=== PATIENT | female | born 1995 | race Caucasian/White ===

== ENCOUNTER → 2017-09-11 | Outpatient (CLI) | payer OTHER ==
[~2017-09-11] VITALS: Ht 162.6 cm; Wt 53.5 kg
[~2017-09-11] MED LIST: GADOBUTROL 7.5 MMOL/7.5 ML (GADAVIST) VIAL IV ONE; IOHEXOL 240 MGI/ML 20 ML (OMNIPAQUE) VIAL IV ONE; IOHEXOL 300 MG/ML 30 ML (OMNIPAQUE 300) VIAL IV ONE; LIDOCAINE 1% INJ 20 ML 20 ML VIAL INJ ONE; LIDOCAINE 1% INJ 20 ML 20 ML VIAL ONE
[2017-09-11 13:15] VITALS: BP 112/58
[2017-09-11 13:38] VITALS: BP 116/71
[2017-09-11] MEDS: CATHETER FLUSH 10 ML SYR IVP PRN (13:44)
--- NOTE | 2017-09-11 15:51 | Diagnostic Imaging Report ---
PROCEDURE: MRI left joint lower extremity with contrast. TECHNIQUE: Multiplanar, multisequence contrast-enhanced MRI of the left lower extremity was accomplished. INDICATION: Left hip pain. COMPARISON: None available. FINDINGS: Left hip: The left hip joint is well distended with intra-articular contrast material. There is no proliferative synovitis or loose bodies present. No chondromalacia within the left hip. The left acetabular labrum has normal morphology and there is no tear or paralabral cyst. Normal femoral head neck offset. No acetabular retroversion. Ligamentum teres is intact. Pelvis: No fracture or stress fracture within the pelvis or proximal femurs. No osteonecrosis of the femoral head. The bilateral distal iliopsoas tendons are intact. The proximal hamstring complexes are normal. No abnormality of the adductor musculature. No abnormal narrowing of the ischiofemoral spaces. The bilateral gluteus medius and minimus tendons are intact. No peritrochanteric fluid collections to indicate bursitis. No free pelvic fluid. IMPRESSION: 1. No acetabular labral tear. 2. No muscle strain or tendon tear around the left hip to account for pain. 3. No stress fracture within the proximal femurs or pelvis. Dictated by: Dictated on workstation # [id number]
--- NOTE | 2017-09-11 17:07 | Diagnostic Imaging Report ---
INDICATION: Left hip pain. The patient was brought to the procedure room and placed on the table in the supine position. Skin over the left hip was prepped and draped in usual sterile fashion. A small amount of 1% lidocaine was utilized for local anesthesia. A 20-gauge needle was advanced into the left hip and placed with the tip at the femoral head and neck junction laterally. 15 mL solution of iodinated contrast, normal saline and gadolinium was injected under fluoroscopic observation. The needle was withdrawn, hemostasis was obtained. 28 seconds of fluoroscopy was utilized. IMPRESSION: Fluoroscopically assisted left hip injection of gadolinium contrast solution, as described. Dictated by: Dictated on workstation # [id number]
== END ==
LOC: RAD 12:37
PROVIDERS: ATTEND Orthopaedic Surgery
DX: S73.102A Unspecified sprain of left hip, initial encounter (principal)
CPT/HCPCS: 27093; 73525; 73722

== ENCOUNTER 2017-11-26 08:27 | Outpatient (RCR) | payer OTHER | END 2017-11-26 09:24 | disposition home or self-care (01) | PROVIDERS: ATTEND Orthopaedic Surgery | DX: M25.552 Pain in left hip (principal); M25.562 Pain in left knee; M25.652 Stiffness of left hip, not elsewhere classified; M25.662 Stiffness of left knee, not elsewhere classified ==

== ENCOUNTER 2018-07-13 15:54 | Emergency (ER) | payer OTHER ==
[~2018-07-13] VITALS: Ht 165.1 cm; Wt 58.1 kg
--- OUTSIDE RECORDS SUMMARY | 2018-07-13 16:10 | XMS REPORT ---
Author Author SAVI KANA Organization [facility] Address [address] [place] [address] Care Team Providers Care Rate And Cost Analyst Name Role Phone KANA HOU Unavailable PROBLEMS Type Condition ICD9-CM Code [id number] Code Onset Dates Condition Status SNOMED Code Problem Panic attacks F41.0 Active [id number] ALLERGIES No Known Allergies ENCOUNTERS Encounter Location Date Diagnosis [facility] [address] [facility] [id number] [address] Feb, Panic attacks F41.0 IMMUNIZATIONS No Known Immunizations SOCIAL HISTORY Never Assessed REASON FOR VISIT palpitations. pt states she felt the palpitations during an anxiety attack on February 12-[facility] PLAN OF CARE Activity Details Follow Up prn Reason: VITAL SIGNS Height 65.25 in 2018-02-22 Weight 129.9 lbs 2018-02-22 Temperature 98.2 degrees Fahrenheit 2018-02-22 Heart Rate 75 bpm 2018-02-22 Respiratory Rate 20 2018-02-22 Oximetry 100 % 2018-02-22 BMI 21.45 kg/m2 2018-02-22 Blood pressure systolic 124 mmHg 2018-02-22 Blood pressure diastolic 70 mmHg 2018-02-22 MEDICATIONS Medication Instructions Dosage Frequency Start Date End Date Duration Status HydrOXYzine HCl 25 MG Orally every 8 hrs 1 tablet as needed for anxiety 8h Feb, 30 day(s) Active RESULTS No Results PROCEDURES Procedure Date Ordered Result Body Site EKG, TRACING (IN-HOUSE) 2018-02-22 N/A ELECTROCARDIOGRAM, TRACING Feb 22, 2018 VENIPUNCT, ROUTINE* Feb 22, 2018 COMPLETE CBC W/AUTO DIFF WBC Feb 22, 2018 ASSAY THYROID STIM HORMONE Feb 22, 2018 COMPREHEN METABOLIC PANEL Feb 22, 2018 INSTRUCTIONS MEDICATIONS ADMINISTERED No Known Medications MEDICAL (GENERAL) HISTORY Type Description Date Medical History s-SVT Medical History Anxiety Surgical History No know Surgical history
--- NOTE | 2018-07-13 16:18 | ED Lower Extremity ---
General Chief Complaint: Lower Extremity Stated Complaint: L LEG PAIN Nursing Triage Note: pt arrived pov with animal trainer with complaints of left lower leg pain, swelling, and redness. Pt states yesterday it started hurting and the coach operator stated the left extremity was colder than the other. Nursing Sepsis Screen: No Definite Risk Source: patient Exam Limitations: no limitations History of Present Illness Date Seen by Provider: Jul 13, 2018 Time Seen by Provider: 16:16 Initial Comments To ER with pain in the left lower extremity since yesterday that occurred towards the end of her run. Pain is worse with weightbearing on the foot, she's never had this this bad before but she has had some discomfort before. The pain is to the anterior left ankle and behind the left knee. It is not worsened by dorsiflexion and plantar flexion inversion or eversion, only with full weightbearing a sharp pain with weightbearing. She cannot recall any particular injury. Her cross enterprise integrator thought her large family on the left might be colder than the right leg came to the emergency room. Onset: just prior to arrival Severity: moderate Pain/Injury Location: left leg Method of Injury: unknown Modifying Factors: Worse With Movement Allergies and Home Medications Allergies Coded Allergies: No Allergy Information Available (Unverified , 09/11/17) Patient Home Medication List Home Medication List Reviewed: Yes Review of Systems Constitutional: see HPI; No chills, No fever EENTM: see HPI Respiratory: no symptoms reported Genitourinary: no symptoms reported Musculoskeletal: see HPI; No back pain, No joint swelling Skin: no symptoms reported Psychiatric/Neurological: No Symptoms Reported Past Kwiuqdn-Nujhlb-Crxpsy Hx Patient Social History Recent Foreign Travel: No Contact w/Someone Who Travel: No Recent Infectious Disease Expo: No Physical Exam Vital Signs Vital Signs - First Documented 07/13/18 16:04 Temp 97.4 Pulse 74 Resp 18 B/P (MAP) 114/76 (89) Pulse Ox 99 O2 Delivery Room Air Capillary Refill : Less Than 3 Seconds Height, Weight, BMI Height: 5'5.00" Weight: 128lbs. 0.0oz. 58.474800ds; 20.3 BMI Method:Stated General Appearance: WD/WN, no apparent distress HEENT: PERRL/EOMI, normal ENT inspection Neck: non-tender, full range of motion Respiratory: no respiratory distress, no accessory muscle use Hips: bilateral hip non-tender, bilateral hip normal inspection, bilateral hip normal range of motion Legs: left leg other (left anterior lower leg is without any temperature difference compared to the right. The dorsalis pedis pulses +2 in strength bilaterally. There is no swelling. There is minimal faint erythema to the anterior aspect of the lower leg just above the ankle without fluctuant orEffusion or abscess or break in the skin.) Knees: bilateral knee non-tender, bilateral knee normal inspection, bilateral knee normal range of motion Ankles: bilateral ankle non-tender, bilateral ankle normal inspection, bilateral ankle normal range of motion Feet: bilateral foot non-tender, bilateral foot normal inspection, bilateral foot normal range of motion Neurologic/Psychiatric: alert, normal mood/affect, oriented x 3 Skin: normal color, warm/dry Compartments of the lower leg are soft, no increased pain with flexion or plantar flexion, distal pulses and sensation are normal, do not have concern for exertional compartment syndrome. Progress/Results/Core Measures Results/Orders Lab Results Laboratory Tests Test 07/13/18 16:34 Range/Units White Blood Count 5.0 4.3-11.0 10^3/uL Red Blood Count 4.51 4.35-5.85 10^6/uL Hemoglobin 13.6 11.5-16.0 G/DL Hematocrit 41 35-52 % Mean Corpuscular Volume 90 80-99 FL Mean Corpuscular Hemoglobin 30 25-34 PG Mean Corpuscular Hemoglobin Concent 34 32-36 G/DL Red Cell Distribution Width 13.0 10.0-14.5 % Platelet Count 263 130-400 10^3/uL Mean Platelet Volume 9.4 7.4-10.4 FL Neutrophils (%) (Auto) 49 42-75 % Lymphocytes (%) (Auto) 39 12-44 % Monocytes (%) (Auto) 9 0-12 % Eosinophils (%) (Auto) 2 0-10 % Basophils (%) (Auto) 1 0-10 % Neutrophils # (Auto) 2.5 1.8-7.8 X 10^3 Lymphocytes # (Auto) 2.0 1.0-4.0 X 10^3 Monocytes # (Auto) 0.4 0.0-1.0 X 10^3 Eosinophils # (Auto) 0.1 0.0-0.3 10^3/uL Basophils # (Auto) 0.0 0.0-0.1 10^3/uL D-Dimer <= 0.27 0.00-0.49 UG/ML Sodium Level 143 135-145 MMOL/L Potassium Level 3.8 3.6-5.0 MMOL/L Chloride Level 108 H 98-107 MMOL/L Carbon Dioxide Level 24 21-32 MMOL/L Anion Gap 11 5-14 MMOL/L Blood Urea Nitrogen 15 7-18 MG/DL Creatinine 0.82 0.60-1.30 MG/DL Estimat Glomerular Filtration Rate > 60 BUN/Creatinine Ratio 18 Glucose Level 100 70-105 MG/DL Calcium Level 9.6 8.5-10.1 MG/DL Corrected Calcium 9.3 8.5-10.1 MG/DL Total Bilirubin 0.3 0.1-1.0 MG/DL Aspartate Amino Transf (AST/SGOT) 25 5-34 U/L Alanine Aminotransferase (ALT/SGPT) 25 0-55 U/L Alkaline Phosphatase 57 40-136 U/L Total Protein 7.0 6.4-8.2 GM/DL Albumin 4.4 3.2-4.5 GM/DL Serum Test, Qualitative NEGATIVE NEGATIVE My Orders Orders - ILYA LEIJA APRN Cbc With Automated Diff (07/13/18 16:09) Comprehensive Metabolic Panel (07/13/18 16:09) Fibrin Degradation Products (07/13/18 16:09) Hcg,Qualitative Serum (07/13/18 16:09) Ankle, Left, 3 Views (07/13/18 16:13) Us Venous Lower Ext Lt (07/13/18 16:13) Vital Signs/I&O 07/13/18 16:04 Temp 97.4 Pulse 74 Resp 18 B/P (MAP) 114/76 (89) Pulse Ox 99 O2 Delivery Room Air Blood Pressure Mean: 89 Departure Communication (Admissions) Dorsiflexion-external rotation test is negative. Squeeze test negative. I'm unable to reproduce the pain with any movement of the ankle. She states it hurts worse when it's just hanging off the edge of the chair. I advised ibuprofen, acetaminophen, follow-up with Dr. Chi, she should rest for the next 2-3 days. Impression Primary Impression: Ankle pain Qualified Codes: M25.572 - Pain in left ankle and joints of left foot Disposition: 01 HOME, SELF-CARE Condition: Stable Departure-Patient Inst. Decision time for Depature: 16:59 Referrals: NO,LOCAL PHYSICIAN (PCP) Primary Care Physician SHANTI CHI MD Patient Instructions: NO INSTRUCTIONS GIVEN Add. Discharge Instructions: 1. If pain does not improve within the next 2-3 days follow-up with [facility] or Dr. Chi. Return to ER for any concerns. All discharge instructions reviewed with patient and/or family. Voiced understanding. Images Extremities-Lower 1 - Other-See Progress Note 1 - Copy Copies To 1: SHANTI CHI MD, PETER J APRN Jul 13, 2018 16:18
--- NOTE | 2018-07-13 16:35 | Diagnostic Imaging Report ---
PROCEDURE: US left lower extremity venous. TECHNIQUE: Multiple real-time grayscale images were obtained over the left lower extremity in various projections. Additional duplex Doppler and color Doppler images were also obtained. INDICATION: Leg pain. FINDINGS: Femoropopliteal deep venous system appears patent. Vascular compressibility and color flow are unremarkable. Venous waveforms are unremarkable. IMPRESSION: No evidence for left lower extremity deep vein thrombus. Dictated by: Dictated on workstation # [id number]
[2018-07-13 16:51] LABS: BASOPHILS % (AUTO) 1 % (0-10); EOSINOPHILS # (AUTO) 0.1 10^3/uL (0.0-0.3); EOSINOPHILS % (AUTO) 2 % (0-10); HEMATOCRIT 41 % (35-52); HEMOGLOBIN 13.6 G/DL (11.5-16.0); LYMPHOCYTES % (AUTO) 39 % (12-44); MEAN CORPUSCULAR HEMOGLOBIN 30 PG (25-34); MEAN CORPUSCULAR HGB CONC 34 G/DL (32-36); MEAN CORPUSCULAR VOLUME 90 FL (80-99); MEAN PLATELET VOLUME 9.4 FL (7.4-10.4); MONOCYTES # (AUTO) 0.4 X 10^3 (0.0-1.0); MONOCYTES % (AUTO) 9 % (0-12); NEUTROPHILS # (AUTO) 2.5 X 10^3 (1.8-7.8); NEUTROPHILS % (AUTO) 49 % (42-75); PLATELET COUNT 263 10^3/uL (130-400)
--- NOTE | 2018-07-13 16:52 | Diagnostic Imaging Report ---
INDICATION: Left ankle pain. AP, oblique, and lateral views of the left ankle are obtained. FINDINGS: No fracture or acute bony abnormality is seen. Joint spaces are unremarkable. IMPRESSION: Negative left ankle. Dictated by: Dictated on workstation # [id number]
[2018-07-13 17:02] LABS: ALANINE AMINOTRANSFERASE 25 U/L (0-55); ALBUMIN 4.4 GM/DL (3.2-4.5); ALKALINE PHOSPHATASE 57 U/L (40-136); BILIRUBIN,TOTAL 0.3 MG/DL (0.1-1.0); BUN/CREATININE RATIO 18; CALCIUM 9.6 MG/DL (8.5-10.1); CARBON DIOXIDE 24 MMOL/L (21-32); CHLORIDE 108 MMOL/L (98-107); CREATININE SERUM 0.82 MG/DL (0.60-1.30); GFR ESTIMATED > 60; GLUCOSE 100 MG/DL (70-105); POTASSIUM 3.8 MMOL/L (3.6-5.0); SODIUM 143 MMOL/L (135-145)
--- NOTE | 2018-07-13 17:12 | NUR ---
Brittny hamlin in [place] - 07/16/18 at 0931 by JOLANTA INFUSAPORT NEEDLE CHANGED TO POWER PORT NEEDLE USING FILTER PLANT SUPERVISOR
[2018-07-13 17:22] VITALS: BP 117/82
== END 2018-07-13 17:22 | disposition home or self-care (01) ==
LOC: EDUNIT# 15:54 → ER 15:55
DX: M25.572 Pain in left ankle and joints of left foot (principal); X58.XXXA Exposure to other specified factors, initial encounter
CPT/HCPCS: 36415; 73610; 80053; 84703; 85025; 85379

== ENCOUNTER 2019-08-17 19:49 | Emergency (ER) | payer OTHER ==
[~2019-08-17] VITALS: Ht 167.6 cm; Wt 61.6 kg
[2019-08-17] MEDS ORDERED: SERT100T PO (20:09)
[2019-08-17] MEDS ORDERED: BREX2TAB PO (20:12)
--- NOTE | 2019-08-17 20:30 | NUR ---
PATIENT VERBALLY AGREES THAT SHE WILL NOT HARM HERSELF.
[2019-08-17 20:44] LABS: BASOPHILS % (AUTO) 0 % (0-10); EOSINOPHILS # (AUTO) 0.1 10^3/uL (0.0-0.3); EOSINOPHILS % (AUTO) 1 % (0-10); HEMATOCRIT 42 % (35-52); HEMOGLOBIN 14.2 G/DL (11.5-16.0); LYMPHOCYTES # (AUTO) 2.3 X 10^3 (1.0-4.0); LYMPHOCYTES % (AUTO) 29 % (12-44); MEAN CORPUSCULAR HEMOGLOBIN 29 PG (25-34); MEAN CORPUSCULAR HGB CONC 34 G/DL (32-36); MEAN CORPUSCULAR VOLUME 85 FL (80-99); MEAN PLATELET VOLUME 8.9 FL (7.4-10.4); MONOCYTES # (AUTO) 0.7 X 10^3 (0.0-1.0); MONOCYTES % (AUTO) 9 % (0-12); NEUTROPHILS # (AUTO) 4.7 X 10^3 (1.8-7.8); NEUTROPHILS % (AUTO) 61 % (42-75); PLATELET COUNT 293 10^3/uL (130-400); RED CELL DISTRIBUTION WIDTH 13.1 % (10.0-14.5); WHITE BLOOD COUNT 7.8 10^3/uL (4.3-11.0)
[2019-08-17] MEDS ORDERED: TETANUS,DIPTH,PERTUSS P/F (BOOSTRIX) 0.5 ML VIAL IM ONE (20:45)
[2019-08-17 20:55] LABS: BILIRUBIN,URINE NEGATIVE (NEGATIVE); CLARITY,URINE CLEAR; COLOR,URINE YELLOW; GLUCOSE, URINE (UA) NEGATIVE (NEGATIVE); KETONES,URINE NEGATIVE (NEGATIVE); LEUKOCYTE ESTERASE ,URINE NEGATIVE (NEGATIVE); NITRITE,URINE NEGATIVE (NEGATIVE); PROTEIN,URINE NEGATIVE (NEGATIVE)
[2019-08-17 21:00] LABS: BACTERIA,URINE TRACE /HPF; SQUAMOUS EPITHELIAL CELL,UR RARE /HPF
[2019-08-17 21:08] LABS: AMPHETAMINE SCREEN, URINE NEGATIVE (NEGATIVE); BARBITURATE SCREEN URINE NEGATIVE (NEGATIVE); BENZODIAZEPINES SCREEN URINE NEGATIVE (NEGATIVE); CANNABINOID SCREEN, URINE NEGATIVE (NEGATIVE); COCAINE SCREEN URINE NEGATIVE (NEGATIVE); METHADONE STAT NEGATIVE (NEGATIVE); METHAMPHETAMINE SCREEN URINE S NEGATIVE (NEGATIVE); OPIATE SCREEN URINE NEGATIVE (NEGATIVE); OXYCODONE STAT NEGATIVE (NEGATIVE); PROPOXYPHENE STAT NEGATIVE (NEGATIVE); TRICYCLIC ANTIDEPRESSANTS SCRE NEGATIVE (NEGATIVE)
[2019-08-17 21:11] LABS: ALANINE AMINOTRANSFERASE 12 U/L (0-55); ALBUMIN 4.8 GM/DL (3.2-4.5); ALKALINE PHOSPHATASE 60 U/L (40-136); BILIRUBIN,TOTAL 0.2 MG/DL (0.1-1.0); BUN/CREATININE RATIO 10; CALCIUM 9.6 MG/DL (8.5-10.1); CARBON DIOXIDE 20 MMOL/L (21-32); CHLORIDE 109 MMOL/L (98-107); CREATININE SERUM 0.78 MG/DL (0.60-1.30); GFR ESTIMATED > 60; GLUCOSE 93 MG/DL (70-105); POTASSIUM 3.6 MMOL/L (3.6-5.0); SALICYLATE < 5.0 MG/DL (5.0-20.0); SODIUM 143 MMOL/L (135-145); TOTAL PROTEIN 7.8 GM/DL (6.4-8.2)
--- NOTE | 2019-08-17 21:15 | ED Psychosocial ---
General Chief Complaint: Psych/Social Disorder Stated Complaint: PSYCH EVAL Nursing Triage Note: PATIENT STATES THAT SHE HAS STRUGGLED WITH DEPRESSION FOR 4-5 YEARS AND IT HAS GOTTEN WORSE OVER THE "PAST COUPLE OF WEEKS". SHE STATES THAT SHE DID HAVE ONE LARGE BEER TODAY AND DID CUT HERSELF TODAY, WHICH SHE HAS ALSO STRUGGLED WITH IN THE PAST. Source: patient, other (family friend) Exam Limitations: no limitations (DARCY OLIVARES MD) History of Present Illness Date Seen by Provider: Aug 17, 2019 Time Seen by Provider: 19:53 Initial Comments This pleasant 23-year-old young lady presents to the emergency room with suicidal ideation. She has been struggling with depression for a while and symptoms have been escalating in recent days. She has been medicated with Zoloft and Rexulti. She receives her psychiatric care at [facility] in [place] and had an appointment today. She has been staying at a friend's house recently as part of a safety plan. She returned to her own apartment today and was alone there. While alone she cut on her right wrist with knives resulting good shallow lacerations. She also drank a large beer. She describes suicidal thoughts with plan of action including cutting, drinking alcohol, carbon monoxide poisoning in her car, and hanging. She denies any drug use. She did drink one large beer today. She was dropped off at the hospital by a friend who also works for [facility]. Patient is reluctant to involve her family in her situation. (DARCY OLIVARES MD) Allergies and Home Medications Allergies Coded Allergies: No Allergy Information Available (Unverified , 09/11/17) Home Medications Brexpiprazole 2 Mg Tablet, 2 MG PO DAILY, (Reported) Sertraline HCl 100 Mg Tablet, 200 MG PO DAILY, (Reported) Patient Home Medication List Home Medication List Reviewed: Yes (DARCY OLIVARES MD) Review of Systems Constitutional: no symptoms reported EENTM: no symptoms reported Respiratory: no symptoms reported Cardiovascular: no symptoms reported Gastrointestinal: other (decreased appetite) Genitourinary: no symptoms reported : No Musculoskeletal: no symptoms reported Skin: see HPI Psychiatric/Neurological: See HPI (DARCY OLIVARES MD) Past Dtdkbpm-Yjhzaz-Vuyeve Hx Past Med/Social Hx: Reviewed Nursing Past Med/Soc Hx (DARCY OLIVARES MD) Patient Social History Number of Drinks Today: 1 Recent Foreign Travel: No Contact w/Someone Who Travel: No Recent Infectious Disease Expo: No Recent Hopitalizations: No (DARCY OLIVARES MD) Seasonal Allergies Seasonal Allergies: No (DARCY OLIVARES MD) Past Medical History Surgeries: No Respiratory: No Cardiac: No Neurological: No : No Genitourinary: No Gastrointestinal: No Musculoskeletal: No Endocrine: No HEENT: No Cancer: No Psychosocial: Yes Anxiety, Depression Integumentary: No Blood Disorders: Yes (anemia) Adverse Reaction/Blood Tranf: No (DARCY OLIVARES MD) Physical Exam Vital Signs - First Documented 08/17/19 20:14 Temp 36.5 Pulse 85 Resp 18 B/P (MAP) 131/82 (98) (SHONDA CAMACHO DO) Capillary Refill : Less Than 3 Seconds (DARCY OLIVARES MD) Height, Weight, BMI Height: 5'5.00" Weight: 128lbs. 0.0oz. 58.734445py; 21.00 BMI Method:Stated General Appearance: WD/WN, mild distress HEENT: PERRL/EOMI, normal ENT inspection Neck: normal inspection Respiratory: lungs clear, normal breath sounds, no respiratory distress Cardiovascular: regular rate, rhythm, no edema, no murmur Extremities: no pedal edema, other (shallow abrasions on the right dorsal wrist) Neurologic/Psychiatric: felt hat pouncing operator hand II-XII nml as tested, no motor/sensory deficits, alert, normal mood/affect, oriented x 3, abnormal felt hat pouncing operator hand II-XII Appearance/Memory: appropriate appearance, appropriate insight, neat, no memory impairment Behavior/Eye Contact: cooperative, good eye contact, normal speech Thoughts/Hallucinations: no apparent hallucination, other (suicidal ideation) Skin: normal color, warm/dry, other (shallow abrasions to the right dorsal wrist) (DARCY OLIVARES MD) Progress/Results/Core Measures Results/Orders Lab Results Laboratory Tests Test 08/17/19 20:35 08/17/19 20:45 Range/Units White Blood Count 7.8 4.3-11.0 10^3/uL Red Blood Count 4.89 4.35-5.85 10^6/uL Hemoglobin 14.2 11.5-16.0 G/DL Hematocrit 42 35-52 % Mean Corpuscular Volume 85 80-99 FL Mean Corpuscular Hemoglobin 29 25-34 PG Mean Corpuscular Hemoglobin Concent 34 32-36 G/DL Red Cell Distribution Width 13.1 10.0-14.5 % Platelet Count 293 130-400 10^3/uL Mean Platelet Volume 8.9 7.4-10.4 FL Neutrophils (%) (Auto) 61 42-75 % Lymphocytes (%) (Auto) 29 12-44 % Monocytes (%) (Auto) 9 0-12 % Eosinophils (%) (Auto) 1 0-10 % Basophils (%) (Auto) 0 0-10 % Neutrophils # (Auto) 4.7 1.8-7.8 X 10^3 Lymphocytes # (Auto) 2.3 1.0-4.0 X 10^3 Monocytes # (Auto) 0.7 0.0-1.0 X 10^3 Eosinophils # (Auto) 0.1 0.0-0.3 10^3/uL Basophils # (Auto) 0.0 0.0-0.1 10^3/uL Sodium Level 143 135-145 MMOL/L Potassium Level 3.6 3.6-5.0 MMOL/L Chloride Level 109 H 98-107 MMOL/L Carbon Dioxide Level 20 L 21-32 MMOL/L Anion Gap 14 5-14 MMOL/L Blood Urea Nitrogen 8 7-18 MG/DL Creatinine 0.78 0.60-1.30 MG/DL Estimat Glomerular Filtration Rate > 60 BUN/Creatinine Ratio 10 Glucose Level 93 70-105 MG/DL Calcium Level 9.6 8.5-10.1 MG/DL Corrected Calcium 8.5-10.1 MG/DL Total Bilirubin 0.2 0.1-1.0 MG/DL Aspartate Amino Transf (AST/SGOT) 16 5-34 U/L Alanine Aminotransferase (ALT/SGPT) 12 0-55 U/L Alkaline Phosphatase 60 40-136 U/L Total Protein 7.8 6.4-8.2 GM/DL Albumin 4.8 H 3.2-4.5 GM/DL TSH Weld Testing 1.13 0.35-4.94 UIU/ML Serum Test, Qualitative NEGATIVE NEGATIVE Salicylates Level < 5.0 L 5.0-20.0 MG/DL Acetaminophen Level < 10 L 10-30 UG/ML Serum Alcohol 116 H <10 MG/DL Urine Color YELLOW Urine Clarity CLEAR Urine pH 6.0 5-9 Urine Specific [place] <=1.005 1.016-1.022 Urine Protein NEGATIVE NEGATIVE Urine Glucose (UA) NEGATIVE NEGATIVE Urine Ketones NEGATIVE NEGATIVE Urine Nitrite NEGATIVE NEGATIVE Urine Bilirubin NEGATIVE NEGATIVE Urine Urobilinogen 0.2 < = 1.0 MG/DL Urine Leukocyte Esterase NEGATIVE NEGATIVE Urine RBC (Auto) NEGATIVE NEGATIVE Urine RBC NONE /HPF Urine WBC NONE /HPF Urine Squamous Epithelial Cells RARE /HPF Urine Crystals NONE /LPF Urine Bacteria TRACE /HPF Urine Casts NONE /LPF Urine Mucus NEGATIVE /LPF Urine Culture Indicated NO Urine Opiates Screen NEGATIVE NEGATIVE Urine Oxycodone Screen NEGATIVE NEGATIVE Urine Methadone Screen NEGATIVE NEGATIVE Urine Propoxyphene Screen NEGATIVE NEGATIVE Urine Barbiturates Screen NEGATIVE NEGATIVE Ur Tricyclic Antidepressants Screen NEGATIVE NEGATIVE Urine Phencyclidine Screen NEGATIVE NEGATIVE Urine Amphetamines Screen NEGATIVE NEGATIVE Urine Methamphetamines Screen NEGATIVE NEGATIVE Urine Benzodiazepines Screen NEGATIVE NEGATIVE Urine Cocaine Screen NEGATIVE NEGATIVE Urine Cannabinoids Screen NEGATIVE NEGATIVE (CAMACHO,SHONDA L DO) Medications Given in ED Current Medications Medications Dose Ordered Sig/Tisha Route Start Time Stop Time Status Last Admin Dose Admin Diphtheria/ Tetanus/Acell Pertussis 0.5 ml ONCE ONCE IM 08/17/19 20:45 08/17/19 20:46 DC 08/17/19 20:53 0.5 ML (CAMACHO,SHONDA L DO) Vital Signs/I&O 08/17/19 20:14 Temp 36.5 Pulse 85 Resp 18 B/P (MAP) 131/82 (98) (CAMACHO,SHONDA L DO) Blood Pressure Mean: 98 Progress Progress Note #1: Time: 21:14 Progress Note Workup for medical clearance is in progress. [facility] [place] and [facility] in [place], [place] do not have any bed availability. I have left a message at [facility] to check bed availability. Progress Note #2: Time: 02:32 Progress Note We have been unsuccessful in finding an available bed for admission. I discussed the patient's situation with a friend and her physician. The consensus amongst those involved is that the patient has been trying outpatient approaches without success. It is difficult for those supporting her to watch her continuously 24 hours a day. There is concern that when there is lapse in supervision she may use alcohol and make poor decisions that harm herself. Admission seems like the best option at this time. Progress Note #3: Time: 06:21 Progress Note So far we have been unable to secure a psychiatric bed for this patient. We have tried to find beds in the southern portion of our region as she did not want to be closer to [place]. The following facilities do not have beds: [facility] [place], [facility] [place], [facility], [facility] in [place], [facility] in [place], [facility], [facility] and [facility]. [facility] did not return my call. [facility] has a bed and is reviewing her chart. Care of this patient is being transitioned to Dr. Camacho at shift change. He did not have any success in getting the patient to communicate with her mother or consenting to let me communicate with her mother. (DARCY OLIVARES MD) Progress Note : Progress Note [id number] [facility], Dr Parikh (SHONDA CAMACHO DO) Departure Impression Primary Impression: Suicidal ideation Additional Impressions: Laceration of right forearm Qualified Codes: S51.811A - Laceration without foreign body of right forearm, initial encounter Self-harm Disposition: 02 XFER SHT-TRM HOSP Condition: Stable Transfer Transfer Reason: Exceeds level of care (DARCY OLIVARES MD) Transfer Reason: Exceeds level of care Time Spoke to Accepting Phy: 07:00 Transfer Progress Notes Pt accepted Dr Parikh Transfer Facility: [facility] Method of Transfer: EMS (SHONDA CAMACHO DO) Departure-Patient Inst. Referrals: NO,LOCAL PHYSICIAN (PCP/Family) Primary Care Physician DARCY OLIVARES MD Aug 17, 2019 21:15 SHONDA CAMACHO DO Aug 18, 2019 06:57
[2019-08-17 21:16] LABS: ACETAMINOPHEN < 10 UG/ML (10-30)
[2019-08-17 21:31] LABS: TSH (THYROID ANALYZER) 1.13 UIU/ML (0.35-4.94)
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
--- NOTE | 2019-08-18 00:47 | NUR ---
Called [facility] and [facility] to inquire if they had any beds available. They confirmed that they did have a bed available and an intake counselor would be following up.
--- NOTE | 2019-08-18 02:43 | NUR ---
Followed up with Nicolette because the intake counselor had not called us back. I spoke to Samson, the intake counselor, and connected him with Dr. Messer. I faxed them the patient cover sheet, Dr. Messer's notes, and her labs.
--- NOTE | 2019-08-18 03:00 | NUR ---
PATIENT REMOVED BLOOD PRESSURE CUFF.
--- NOTE | 2019-08-18 06:42 | NUR ---
CALLED [facility] FOR UPDATE ON ACCEPTING THE PATIENT. WAS INFORMED THAT INTAKE WAS CURRENTLY REVIEWING THE PATIENT'S INFORMATION AND THAT THEY WOULD CALL BACK WITH AN UPDATE.
--- NOTE | 2019-08-18 07:00 | NUR ---
REPORT FROM ADRY BARBOUR CALLED FOR TRASPORT WILL BE HREE IN 15 MIN.
[2019-08-18 07:38] VITALS: BP 139/87
--- NOTE | 2019-08-18 07:38 | NUR ---
[facility] HERE FOR TRANSPORT DISCHARGE WITH [facility]
[2019-08-18] MEDS ORDERED: NS IV 1000 ML 1,000 ML ONE (07:55)
[2019-08-18] MEDS ORDERED: ONDANSETRON 4 MG/2 ML (SDV) Z0FRAN ONE (07:55)
[2019-08-18] MEDS ORDERED: LORazepam INJ 2 MG/ML (ATIVAN) VIAL ONE (07:56)
== END 2019-08-18 07:38 | disposition short-term general hospital (02) ==
LOC: EDUNIT# 19:49 → ER 19:51
DX: S51.811A Laceration without foreign body of right forearm, initial encounter (principal); S60.811A Abrasion of right wrist, initial encounter; F32.9 Major depressive disorder, single episode, unspecified; F41.9 Anxiety disorder, unspecified; X78.1XXA Intentional self-harm by knife, initial encounter
CPT/HCPCS: 36415; 80053; 80306; 80320; 80329; 81000; 84443; 84703; 85025; 90715; 99284

== ENCOUNTER 2020-08-12 21:49 | Emergency (ER) | payer OTHER ==
[~2020-08-12 21:49] MED LIST changes: +BREX2TAB PO; -GADOBUTROL 7.5 MMOL/7.5 ML (GADAVIST) VIAL IV ONE; -IOHEXOL 240 MGI/ML 20 ML (OMNIPAQUE) VIAL IV ONE; -IOHEXOL 300 MG/ML 30 ML (OMNIPAQUE 300) VIAL IV ONE; -LIDOCAINE 1% INJ 20 ML 20 ML VIAL INJ ONE; -LIDOCAINE 1% INJ 20 ML 20 ML VIAL ONE; +SERT100T PO
== END 2020-08-12 23:57 | disposition left against medical advice (07) ==
LOC: EDUNIT# 21:49 → ER 21:51
DX: F44.9 Dissociative and conversion disorder, unspecified (principal)

== ENCOUNTER 2020-09-23 04:41 | Emergency (ER) | payer BC, OTHER ==
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
== END 2020-09-23 05:19 | disposition home or self-care (01) ==
LOC: EDUNIT# 04:41 → EEVIPCON 04:44 → ER 04:44
DX: T74.21XA Adult sexual abuse, confirmed, initial encounter (principal); F41.9 Anxiety disorder, unspecified; F32.9 Major depressive disorder, single episode, unspecified; Z79.899 Other long term (current) drug therapy; Y07.9 Unspecified perpetrator of maltreatment and neglect

== ENCOUNTER 2020-12-14 01:01 | Emergency (ER) | payer BC ==
[~2020-12-14] VITALS: Ht 165.1 cm; Wt 68.0 kg
[2020-12-14] MEDS ORDERED: ADENOSINE 6 MG/2 ML (ADENOCARD) VIAL IV ONE ×4 (01:26→01:30)
--- NOTE | 2020-12-14 01:31 | ED Cardiac General ---
History of Present Illness General Chief Complaint: Cardiac/General Problems Stated Complaint: HEART PALPITATIONS Source: patient Exam Limitations: no limitations History of Present Illness Date Seen by Provider: Dec 14, 2020 Time Seen by Provider: 01:20 Initial Comments Patient is a 25-year-old female who presents to the emergency department today with a chief complaint of "palpitations". She denies chest pain or shortness of breath. No abdominal pain, nausea, vomiting. No urinary complaints. Patient states she started experiencing symptoms consistent with SVT at about 11 PM this evening. Patient states she had a little alcohol this evening. She tried multiple remedies at home without any real resolution of symptoms. She has had episodes of SVT in the past and required cardioversion with adenosine. She has seen a conveyor weigher operator but it has been "years ago". She denies any excessive caffeine use, no energy drinks, has not seen her primary care doctor recently. States she is due for her next menstrual cycle in 2 days. States that she is not . No allergies to medications. Takes medications for anxiety and depression but has recently missed a couple of doses of her Abilify. No complaints of illness. Is Covid vaccinated. All other review of systems reviewed and negative except as stated. Timing/Duration: 1-3 hours Severity: moderate Associated Systoms: Denies Symptoms Allergies and Home Medications Allergies Coded Allergies: No Allergy Information Available (Unverified , 09/11/17) Patient Home Medication List Home Medication List Reviewed: Yes Brexpiprazole (Rexulti) 2 Mg Tablet, 2 MG PO DAILY, (Reported) Entered as Reported by: AKIN BERRY on 08/17/192011 Sertraline HCl (Zoloft) 100 Mg Tablet, 200 MG PO DAILY, (Reported) Entered as Reported by: AKIN BERRY on 08/17/192008 Review of Systems Review of Systems Constitutional: no symptoms reported, see HPI EENTM: No Symptoms Reported Respiratory: No Symptoms Reported Cardiovascular: Palpitations Gastrointestinal: No Symptoms Reported Genitourinary: No Symptoms Reported Musculoskeletal: no symptoms reported Skin: no symptoms reported Psychiatric/Neurological: No Symptoms Reported Endocrine: No Symptoms Reported All Other Systems Reviewed Negative Unless Noted: Yes Past Xzcyemy-Ilnnuh-Qjzpge Hx Immunizations Up To Date Tetanus Booster (TDap): Unknown Seasonal Allergies Seasonal Allergies: No Past Medical History Surgeries: No Respiratory: No Cardiac: No Neurological: No Genitourinary: No Gastrointestinal: No Musculoskeletal: No Endocrine: No HEENT: No Cancer: No Psychosocial: Yes Anxiety, Depression Integumentary: No Blood Disorders: Yes (anemia) Adverse Reaction/Blood Tranf: No Physical Exam Vital Signs Vital Signs - First Documented 12/14/20 01:17 Temp 36.1 Pulse 156 Resp 20 B/P (MAP) 127/76 (93) Pulse Ox 97 O2 Delivery Room Air Capillary Refill : Height, Weight, BMI Height: 5'5.00" Weight: 128lbs. 0.0oz. [age]yo; 21.00 BMI Method:Stated General Appearance: No Apparent Distress, WD/WN HEENT: PERRL/EOMI Neck: Normal Inspection Respiratory: Lungs Clear, Normal Breath Sounds, No Accessory Muscle Use, No Respiratory Distress Cardiovascular: Regular Rate, Rhythm, Tachycardia Gastrointestinal: Non Tender, Soft Extremity: Normal Capillary Refill, Normal Inspection, Normal Range of Motion, Non Tender, No Calf Tenderness Neurologic/Psychiatric: Alert, Oriented x3, No Motor/Sensory Deficits, Normal Mood/Affect Skin: Normal Color, Warm/Dry Progress/Results/Core Measures Results/Orders Lab Results Laboratory Tests Test 12/14/20 01:28 Range/Units Sodium Level 138 135-145 MMOL/L Potassium Level 3.8 3.6-5.0 MMOL/L Chloride Level 109 H 98-107 MMOL/L Carbon Dioxide Level 17 L 21-32 MMOL/L Anion Gap 12 5-14 MMOL/L Blood Urea Nitrogen 9 7-18 MG/DL Creatinine 0.77 0.60-1.30 MG/DL Estimat Glomerular Filtration Rate 91 BUN/Creatinine Ratio 12 Glucose Level 107 H 70-105 MG/DL Calcium Level 8.7 8.5-10.1 MG/DL My Orders Orders - HYUN CASE MD Urine Bedside (12/14/20 01:25) Basic Metabolic Panel (12/14/20 01:25) Ekg Tracing (12/14/20 01:25) Adenosine Injection (Adenocard Injection (12/14/20 01:30) Adenosine Injection (Adenocard Injection (12/14/20 01:30) Adenosine Injection (Adenocard Injection (12/14/20 01:26) Ns Iv 1000 Ml (Sodium Chloride 0.9%) (12/14/20 01:45) Adenosine Injection (Adenocard Injection (12/14/20 01:28) Ns Iv 1000 Ml (Sodium Chloride 0.9%) (12/14/20 01:32) Medications Given in ED Current Medications Medications Dose Ordered Sig/Tisha Route Start Time Stop Time Status Last Admin Dose Admin Adenosine 6 mg ONCE ONCE IV 12/14/20 01:30 12/14/20 01:31 DC 12/14/20 01:34 6 MG Adenosine 12 mg ONCE ONCE IV 12/14/20 01:30 12/14/20 01:31 DC 12/14/20 01:37 12 MG Vital Signs/I&O 12/14/20 01:17 Temp 36.1 Pulse 156 Resp 20 B/P (MAP) 127/76 (93) Pulse Ox 97 O2 Delivery Room Air Progress Progress Note #1: Time: :29 Progress Note Attempted Valsalva with laying patient back and raising her legs above her head. Did this twice and her heartrate didnt budge. ALso did about 2-3 minutes of carotid massage. no improvement (HR actually increased from 160 to 172) Will place IV and give fluids and adenosine. 0141 pushed 6mg of adenosine, no relief; then 12mg she had a brief, split second pause and reset with HR down to 120's and then to 110. getting IVF's now. awaiting labs. Progress Note #2: Time: 02:22 Progress Note Patient feels much better, has been up into the bathroom. Completely asymptomatic. Heart rate 96. Eager for discharge. Initial ECG Impression Date: Dec 14, 2020 Initial ECG Impression Time: :18 Initial ECG Rate: 155 Initial ECG Rhythm: SVT Initial ECG Intervals [place] QRS 92 QTc 463 Initial ECG Impression: SVT Comment No P waves visible. EKG : EKG Time: :34 Rate: 137 Rhythm: S.Tach Intervals: Normal Intervals [place] 148 QRS 95 QTc 437 ECG Comparisson: Changed ECG Impression: Normal Comment sinus tach, P waves visible; improved and converted from SVT to sinus tach Departure Impression Primary Impression: Supraventricular tachycardia Disposition: HOME, SELF-CARE Condition: Stable Departure-Patient Inst. Decision time for Depature: 02:22 Referrals: KANA HOU MD (PCP) Primary Care Physician [facility] [place] Primary Care Physician JONNIE JAUREGUI MD, ALI MD FACP [facility] CCDS Patient Instructions: Paroxysmal Supraventricular Tachycardia (DC) Add. Discharge Instructions: Drink plenty of fluids to stay well-hydrated. Try and avoid the triggers for your SVT, especially dehydration, excessive caffeine use, excessive alcohol use. Please call and follow-up with Dr. Jauregui at [facility]. I have given you referral information/contact information for Dr. Rios, adult conveyor weigher operator here at [facility]. Please call for a follow-up appointment. Return to the emergency room for any new, concerning or emergent complaints. HYUN CASE MD Dec 14, 2020 01:30
[2020-12-14] MEDS ORDERED: NS IV 1000 ML 1,000 ML ONE (01:32)
[2020-12-14 01:44] LABS: POTASSIUM 3.8 MMOL/L (3.6-5.0)
[2020-12-14 01:45] LABS: CALCIUM 8.7 MG/DL (8.5-10.1)
[2020-12-14] MEDS ORDERED: NS IV 1000 ML 1,000 ML IV SCH (01:45)
[2020-12-14 01:49] LABS: CREATININE SERUM 0.77 MG/DL (0.60-1.30)
[2020-12-14 02:32] VITALS: BP 116/74
== END 2020-12-14 02:35 | disposition home or self-care (01) ==
LOC: EDUNIT# 01:01 → ER 01:06
DX: I47.1 Supraventricular tachycardia (principal); F41.9 Anxiety disorder, unspecified; F32.9 Major depressive disorder, single episode, unspecified; Z79.899 Other long term (current) drug therapy
CPT/HCPCS: 36415; 80048; 84703; 93005

== ENCOUNTER 2021-05-18 17:06 | Emergency (ER) | payer BC ==
[~2021-05-18] VITALS: Ht 165 cm; Wt 72.0 kg
--- NOTE | 2021-05-18 17:27 | ED Cardiac General ---
History of Present Illness General Chief Complaint: Cardiac/General Problems Stated Complaint: RAPID HEART RATE Nursing Triage Note: ARRIVED VIA AMB TO ROOM 05. STATES SHE HAS BEEN IN SVT FOR APPX 1 HR. HX OF SVT. AFTER PT GOT INTO A GOWN AND LAYED DOWN INTO BED SHE STATES SHE THINKS SHE JUST WENT OUT OF IT. Source: patient Exam Limitations: no limitations (MAGED SILVER STUDENT) History of Present Illness Date Seen by Provider: May 18, 2021 Time Seen by Provider: 17:20 Initial Comments This is a 25 YO female with prior episodes of SVT who presents to the ER with heart palpitations. Pt states she was driving her car when she felt the blood moss to her head and her heart started beating fast, which she says is typical of her episodes of SVT. She pulled over to the side of the road and waited for the palpitations to pass. When they did not resolve on their own, she called a friend to bring her to the ER. She says that after being placed in a room here in the ER, she felt the palpitations resolve. Now, she feels that she is back at baseline and asymptomatic. When asked about any factors that may have precipitated her palpitations, she says she had some alcohol last night. She also says she had coffee this morning and went on a run and has not eaten anything yet today. ASA po FINANCIAL SYSTEMS ADMINISTRATOR: No Associated Systoms: No Chest Pain; Shortness of Air (MAGED SILVER PRECIOUS DENT) Allergies and Home Medications Allergies Coded Allergies: tree nut (Verified Allergy, Unknown, 05/18/21) Patient Home Medication List Home Medication List Reviewed: Yes (DARCY OLIVARES MD) Brexpiprazole (Rexulti) 2 Mg Tablet, 2 MG PO DAILY, (Reported) Entered as Reported by: AKIN BERRY on 08/17/192011 Sertraline HCl (Zoloft) 100 Mg Tablet, 200 MG PO DAILY, (Reported) Entered as Reported by: AKIN BERRY on 08/17/192008 Review of Systems Review of Systems Constitutional: No chills, No fever EENTM: No Blurred Vision, No Double Vision Respiratory: Denies Cough, Denies Wheezing Cardiovascular: See HPI; Denies Chest Pain; Irregular Heart Rate Gastrointestinal: Denies Abdominal Pain, Denies Vomiting Genitourinary: No Symptoms Reported Musculoskeletal: back pain, muscle pain Skin: pruritus, rash Psychiatric/Neurological: Denies Headache, Denies Numbness Endocrine: No Symptoms Reported Hematologic/Lymphatic: No Symptoms Reported (MAGED SILVER [employer] STUDENT) All Other Systems Reviewed Negative Unless Noted: Yes (Negative excepted noted.) (MAGED SILVER [employer] STUDENT) Past Vfuagtn-Cyiaxt-Ybdysj Hx Immunizations Up To Date Tetanus Booster (TDap): Unknown (MAGED SILVER STUDENT) Seasonal Allergies Seasonal Allergies: No (MAGED SILVER STUDENT) Past Medical History Surgery/Hospitalization HX: MED HX: ANXIETY, DEPRESSION Surgeries: No Respiratory: No Cardiac: No Neurological: No Genitourinary: No Gastrointestinal: No Musculoskeletal: No Endocrine: No HEENT: No Cancer: No Psychosocial: Yes Anxiety, Depression Integumentary: No Blood Disorders: Yes (anemia) Adverse Reaction/Blood Tranf: No (MAGED SILVER STUDENT) Physical Exam Vital Signs Vital Signs - First Documented 05/18/21 17:10 Temp 36.5 Pulse 125 Resp 16 B/P (MAP) 149/93 (111) Pulse Ox 98 O2 Delivery Room Air (HYUN CASE MD) Vital Signs Capillary Refill : Less Than 3 Seconds (MAGED SILVER MED STUDENT) Height, Weight, BMI Height: 5'5.00" Weight: 128lbs. 0.0oz. 58.189080ws; 26.00 BMI Method:Stated General Appearance: No Apparent Distress, WD/WN HEENT: PERRL/EOMI; No Scleral Icterus (L), No Scleral Icterus (R) Neck: Normal Inspection, Supple Respiratory: Lungs Clear, Normal Breath Sounds, No Accessory Muscle Use, No Respiratory Distress Cardiovascular: No Edema, No Murmur, Tachycardia Gastrointestinal: Non Tender, Soft; No Distended, No Guarding Extremity: Normal Inspection, Normal Range of Motion Neurologic/Psychiatric: Alert, Oriented x3, No Motor/Sensory Deficits, Normal Mood/Affect Skin: Normal Color, Warm/Dry (MAGED SILVER MED STUDENT) Progress/Results/Core Measures Results/Orders Lab Results Laboratory Tests Test 05/18/21 17:25 Range/Units Sodium Level 137 135-145 MMOL/L Potassium Level 3.3 L 3.6-5.0 MMOL/L Chloride Level 105 98-107 MMOL/L Carbon Dioxide Level 18 L 21-32 MMOL/L Anion Gap 14 5-14 MMOL/L Blood Urea Nitrogen 9 7-18 MG/DL Creatinine 0.89 0.60-1.30 MG/DL Estimat Glomerular Filtration Rate 92 BUN/Creatinine Ratio 10 Glucose Level 136 H 70-105 MG/DL Calcium Level 9.6 8.5-10.1 MG/DL Magnesium Level 1.8 1.6-2.4 MG/DL Serum Test, Qualitative NEGATIVE NEGATIVE (HYUN CASE MD) Medications Given in ED Current Medications Medications Dose Ordered Sig/Tisha Route Start Time Stop Time Status Last Admin Dose Admin Lactated Ringer's 1,000 ml @ 0 mls/hr Q0M ONCE IV 05/18/21 17:45 05/18/21 17:46 DC 05/18/21 17:46 1,000 MLS/HR (HYUN CASE MD) Vital Signs/I&O 05/18/21 17:10 Temp 36.5 Pulse 125 Resp 16 B/P (MAP) 149/93 (111) Pulse Ox 98 O2 Delivery Room Air (HYUN CASE MD) Blood Pressure Mean: 111 Progress Progress Note : Time: 18:27 Progress Note Patient seen and examined. [facility] Maged Sue did initial exam on presentation with history. I Have reviewed her documentation and physical exam and agree. Patient at this time is resting comfortably without complaints. SLightly tachy at 106. Normal BP. No neuro complaints or chest pain. Feels back to normal. Return precautions discussed. Physical exam unremarkable for any acute findings. Labs reviewed and WNL. Plan for home with referral to Cards and PCP. All questions are sought and answered. (HYUN CASE MD) Initial ECG Impression Date: May 18, 2021 Initial ECG Impression Time: 18:20 Initial ECG Rate: 116 Initial ECG Rhythm: S.Tach Initial ECG Intervals: Normal Initial ECG Impression: Normal (HYUN CASE MD) Departure Impression Primary Impression: SVT (supraventricular tachycardia) Disposition: 01 HOME, SELF-CARE Condition: Stable Departure-Patient Inst. Decision time for Depature: 18:24 (HYUN CASE MD) Referrals: JONNIE JAUREGUI MD (PCP/Family) Primary Care Physician BENI CALHOUN MD FACP [facility] FORREST WALLACE MD Patient Instructions: Supraventricular Tachycardia (SVT) Add. Discharge Instructions: Drink plenty of fluids to stay well hydrated Follow up with primary care and a ehs engineer. They may be able to start you on some medications to help control symptoms, or refer you to an ip paralegal to have an Ablation. Return to the ER for any return of symptoms, persistent symptoms that occur with chest pain, nausea or other emergent concerns. Verification and Attestation of Medical Student E/M Service A medical student performed and documented this service in my presence. I reviewed and verified all information documented by the medical student and made modifications to such information, when appropriate. I personally performed the physical exam and medical decision making. Hyun Case, May 18, 2021,18:29 (HYUN CASE MD) Copy Copies To 1: JONNIE JAUREGUI MD; BENI CALHOUN MD [facility] MAGED SILVER MED STUDENT May 18, 2021 17:27 HYUN CASE MD May 18, 2021 18:29 DARCY OLIVARES MD May 19, 2021 06:49
[2021-05-18] MEDS ORDERED: LACTATED RINGERS 1,000 ML IV ONE (17:45)
[2021-05-18 17:51] LABS: POTASSIUM 3.3 MMOL/L (3.6-5.0)
[2021-05-18 17:52] LABS: CALCIUM 9.6 MG/DL (8.5-10.1)
[2021-05-18 17:56] LABS: CREATININE SERUM 0.89 MG/DL (0.60-1.30)
[2021-05-18 17:59] LABS: MAGNESIUM 1.8 MG/DL (1.6-2.4)
[2021-05-18 18:39] VITALS: BP 119/83
== END 2021-05-18 18:44 | disposition home or self-care (01) ==
LOC: EDUNIT# 17:06 → ER 17:09
DX: I47.1 Supraventricular tachycardia (principal)
CPT/HCPCS: 36415; 80048; 83735; 84703; 93005; 93041

== ENCOUNTER 2021-09-16 17:23 | Emergency (ER) | payer BC ==
[~2021-09-16] VITALS: Ht 165.1 cm; Wt 74.8 kg
[2021-09-16 17:42] VITALS: BP 131/86
[2021-09-16 18:04] LABS: BASOPHILS # (AUTO) 0.1 10^3/uL (0.0-0.1); BASOPHILS % (AUTO) 1 % (0-10); EOSINOPHILS # (AUTO) 0.1 10^3/uL (0.0-0.3); EOSINOPHILS % (AUTO) 1 % (0-10); HEMATOCRIT 40 % (35-52); HEMOGLOBIN 13.6 g/dL (11.5-16.0); LYMPHOCYTES # (AUTO) 2.2 10^3/uL (1.0-4.0); LYMPHOCYTES % (AUTO) 22 % (12-44); MEAN CORPUSCULAR HEMOGLOBIN 30 pg (25-34); MEAN CORPUSCULAR HGB CONC 34 g/dL (32-36); MEAN CORPUSCULAR VOLUME 87 fL (80-99); MEAN PLATELET VOLUME 9.6 fL (9.0-12.2); MONOCYTES # (AUTO) 0.5 10^3/uL (0.0-1.0); MONOCYTES % (AUTO) 5 % (0-12); NEUTROPHILS % (AUTO) 70 % (42-75); PLATELET COUNT 253 10^3/uL (130-400); WHITE BLOOD COUNT 9.9 10^3/uL (4.3-11.0)
[2021-09-16 18:05] LABS: BILIRUBIN,URINE NEGATIVE (NEGATIVE); CLARITY,URINE CLEAR; COLOR,URINE YELLOW; GLUCOSE, URINE (UA) NEGATIVE (NEGATIVE); KETONES,URINE NEGATIVE (NEGATIVE); LEUKOCYTE ESTERASE ,URINE NEGATIVE (NEGATIVE); NITRITE,URINE NEGATIVE (NEGATIVE); PH,URINE 7.5 (5-9); PROTEIN,URINE NEGATIVE (NEGATIVE)
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
[2021-09-16 18:15] LABS: BACTERIA,URINE NEGATIVE /HPF; SQUAMOUS EPITHELIAL CELL,UR 0-2 /HPF
[2021-09-16 18:16] LABS: AMPHETAMINE SCREEN, URINE NEGATIVE (NEGATIVE); BARBITURATE SCREEN URINE NEGATIVE (NEGATIVE); BENZODIAZEPINES SCREEN URINE NEGATIVE (NEGATIVE); CANNABINOID SCREEN, URINE NEGATIVE (NEGATIVE); COCAINE SCREEN URINE NEGATIVE (NEGATIVE); METHADONE STAT NEGATIVE (NEGATIVE); OPIATE SCREEN URINE NEGATIVE (NEGATIVE); OXYCODONE STAT NEGATIVE (NEGATIVE); PROPOXYPHENE STAT NEGATIVE (NEGATIVE); TRICYCLIC ANTIDEPRESSANTS SCRE NEGATIVE (NEGATIVE)
[2021-09-16 18:19] LABS: CHLORIDE 105 MMOL/L (98-107); POTASSIUM 3.9 MMOL/L (3.6-5.0)
[2021-09-16 18:20] LABS: ALBUMIN 4.5 GM/DL (3.2-4.5); SODIUM 140 MMOL/L (135-145)
[2021-09-16 18:21] LABS: CALCIUM 9.6 MG/DL (8.5-10.1)
[2021-09-16 18:22] LABS: GLUCOSE 156 MG/DL (70-105)
[2021-09-16 18:23] LABS: CARBON DIOXIDE 22 MMOL/L (21-32); TOTAL PROTEIN 7.4 GM/DL (6.4-8.2)
[2021-09-16 18:24] LABS: BILIRUBIN,TOTAL 0.3 MG/DL (0.1-1.0)
[2021-09-16 18:26] LABS: ALKALINE PHOSPHATASE 61 U/L (40-136); CREATININE SERUM 0.82 MG/DL (0.60-1.30); GFR ESTIMATED 102
[2021-09-16 18:28] LABS: BUN/CREATININE RATIO 9
[2021-09-16 18:29] LABS: ALANINE AMINOTRANSFERASE 17 U/L (0-55); SALICYLATE < 5.0 MG/DL (5.0-20.0)
[2021-09-16 18:35] LABS: ACETAMINOPHEN < 10 UG/ML (10-30)
== END 2021-09-16 21:26 | disposition home or self-care (01) ==
LOC: EDUNIT# 17:23 → ER 17:26
DX: S61.501A Unspecified open wound of right wrist, initial encounter (principal); S51.801A Unspecified open wound of right forearm, initial encounter; R45.851 Suicidal ideations; Z20.822 Contact with and (suspected) exposure to COVID-19; X78.9XXA Intentional self-harm by unspecified sharp object, initial encounter
CPT/HCPCS: 80053; 80306; 81000; 85025; 87636; G0480 ×3; 36415; 80320; 80329; 93005

== ENCOUNTER 2021-09-29 06:34 | Emergency (ER) | payer BC ==
[~2021-09-29] VITALS: Ht 165.1 cm; Wt 73.5 kg
--- NOTE | 2021-09-29 06:43 | ED Cardiac General ---
History of Present Illness General Chief Complaint: Cardiac/General Problems Stated Complaint: HIGH HR Source: patient Exam Limitations: no limitations History of Present Illness Date Seen by Provider: Sep 29, 2021 Time Seen by Provider: 06:43 Initial Comments Shaheen is a very sweet, pleasant 25-year-old female with a history of SVT who presents to the emergency department today with a chief complaint of palpitations consistent with her SVT again. Patient states she woke up with an elevated heart rate at about 6 AM this morning. She states that she did have some drinks last evening. She probably did not drink enough water. She states its been a couple months since she had an episode. Her symptoms resolved as she came to the emergency department at the last visit. Her last menstrual cycle was at the end of August. She is on some antidepressants as daily medications. She has not been able to follow-up with cardiology due to insurance issues. No recent complaints of illness, COVID concerns, dysuria, vaginal discharge, diarrhea, rashes joint pain or swelling. She is not on any new medications, no [id number] cold medications/stimulants. She denies chest pain just palpitations. She does feel little short of breath. All other review of systems reviewed and negative except as stated Timing/Duration: 1 hour Severity: moderate Location: central Activities at Onset: sleep Prior CP/Workup: other (Similar issues in the past with SVT) NTG SL [employer]PECTOR G[employer]MENT PROPERTY: No ASA po INSPECTOR [employer]ERNMENT PROPERTY: No Associated Systoms: Shortness of Air Allergies and Home Medications Allergies Coded Allergies: tree nut (Verified Allergy, Unknown, 05/18/21) Patient Home Medication List Home Medication List Reviewed: Yes Brexpiprazole (Rexulti) 2 Mg Tablet, 2 MG PO DAILY, (Reported) Entered as Reported by: AKIN BERRY on 08/17/192011 Sertraline HCl (Zoloft) 100 Mg Tablet, 200 MG PO DAILY, (Reported) Entered as Reported by: AKIN BERRY on 08/17/192008 Review of Systems Review of Systems Constitutional: see HPI EENTM: No Symptoms Reported Respiratory: SOA at Rest Cardiovascular: Palpitations Gastrointestinal: No Symptoms Reported Genitourinary: No Symptoms Reported Musculoskeletal: no symptoms reported Skin: no symptoms reported Psychiatric/Neurological: Anxiety All Other Systems Reviewed Negative Unless Noted: Yes Past Eemibot-Tbevul-Mvvulo Hx Immunizations Up To Date Tetanus Booster (TDap): Unknown Second COVID19 Vaccination Don: 04/05 Seasonal Allergies Seasonal Allergies: No Past Medical History Surgery/Hospitalization HX: MED HX: ANXIETY, DEPRESSION Surgeries: No Respiratory: No Cardiac: No Neurological: No Genitourinary: No Gastrointestinal: No Musculoskeletal: No Endocrine: No HEENT: No Cancer: No Psychosocial: Yes Anxiety, Depression Integumentary: No Blood Disorders: Yes (anemia) Adverse Reaction/Blood Tranf: No Physical Exam Vital Signs Vital Signs - First Documented 09/29/21 07:00 Temp 36.4 Pulse 178 Resp 18 B/P (MAP) 130/80 (97) Pulse Ox 98 Capillary Refill : Height, Weight, BMI Height: 5'5.00" Weight: 128lbs. 0.0oz. [id number]; 27.00 BMI Method:Stated General Appearance: WD/WN, Anxious HEENT: PERRL/EOMI Neck: Normal Inspection Respiratory: Lungs Clear, Normal Breath Sounds, No Accessory Muscle Use, No Respiratory Distress Cardiovascular: Regular Rate, Rhythm, Normal Peripheral Pulses, Tachycardia (175) Gastrointestinal: Non Tender, Soft Extremity: Normal Capillary Refill, Normal Inspection, Normal Range of Motion, Non Tender, No Pedal Edema Neurologic/Psychiatric: Alert, Oriented x3, mash filter operator II-XII Norm as Tested, Other (Anxious) Skin: Normal Color, Warm/Dry Procedures/Interventions Additional Procedures: cardioversion/defib Progress/Results/Core Measures Results/Orders Lab Results Laboratory Tests Test 09/29/21 06:48 Range/Units Sodium Level 142 135-145 MMOL/L Potassium Level 3.3 L 3.6-5.0 MMOL/L Chloride Level 106 98-107 MMOL/L Carbon Dioxide Level 22 21-32 MMOL/L Anion Gap 14 5-14 MMOL/L Blood Urea Nitrogen 10 7-18 MG/DL Creatinine 0.83 0.60-1.30 MG/DL Estimat Glomerular Filtration Rate 100 BUN/Creatinine Ratio 12 Glucose Level 114 H 70-105 MG/DL Calcium Level 9.6 8.5-10.1 MG/DL Magnesium Level 1.7 1.6-2.4 MG/DL Serum Test, Qualitative NEGATIVE NEGATIVE My Orders Orders - HYUN CASE MD Ekg Tracing (09/29/21 06:39) Ed Iv/Invasive Line Start (09/29/21 06:43) Basic Metabolic Panel (09/29/21 06:43) Hcg,Qualitative Serum (09/29/21 06:43) Adenosine Injection (Adenocard Injection (09/29/21 06:45) Adenosine Injection (Adenocard Injection (09/29/21 06:45) Ns Iv 1000 Ml (Sodium Chloride 0.9%) (09/29/21 06:45) Magnesium (09/29/21 07:05) Medications Given in ED Current Medications Medications Dose Ordered Sig/Tisha Route Start Time Stop Time Status Last Admin Dose Admin Adenosine 6 mg ONCE ONCE IV 09/29/21 06:45 09/29/21 06:46 DC 09/29/21 06:53 6 MG Adenosine 12 mg ONCE ONCE IV 09/29/21 06:45 09/29/21 06:46 DC 09/29/21 06:56 12 MG Vital Signs/I&O 09/29/21 07:00 Temp 36.4 Pulse 178 Resp 18 B/P (MAP) 130/80 (97) Pulse Ox 98 Progress Progress Note #1: Time: 07:04 Progress Note Patient was treated with 1 L of normal saline and 6 mg of adenosine with no change whatsoever in her heart rate. She stayed in the 180s. 12 mg was subsequently administered with resolution over about 1 minute to 90 seconds down to a heart rate of about 110-115. Progress Note #2: Time: 07:51 Progress Note She looks great, heart rate down to 91. Blood pressure is perfect. Fluids are completed. Chemistries reviewed, mildly decreased potassium at 3.3. Magnesium normal. Renal function normal. Serum test negative. She currently has actually gotten insurance through her place of work. I strongly encouraged her to follow-up with cardiology. She verbalized understanding. Return precau tions provided. All questions are sought and answered. Initial ECG Impression Date: Sep 29, 2021 Initial ECG Impression Time: 06:43 Initial ECG Rate: 175 Initial ECG Rhythm: SVT EKG : EKG Time: 06:58 Rate: 113 Rhythm: S.Tach Intervals RI interval 190 QRS 90 QTc 371 ECG Comparisson: Changed Comment No ST segment elevation or ectopy noted. She does have [address] segment depression in V5 and V6 but currently having no chest pain. Departure Impression Primary Impression: SVT (supraventricular tachycardia) Disposition: 01 HOME, SELF-CARE Condition: Improved Departure-Patient Inst. Decision time for Depature: 07:06 Referrals: JONNIE JAUREGUI MD (PCP/Family) Primary Care Physician BENI CALHOUN MD FACP [facility] Patient Instructions: Supraventricular Tachycardia (SVT) Add. Discharge Instructions: Drink extra water today to stay well-hydrated. Try and drink a little extra water if you decide to have any alcoholic beverages later on. Please follow-up with Dr. Jauregui at counts include 234 beds at the [facility]. I have put the name of our price analyst on-call on your discharge papers. Once you get your insurance sorted out call for a follow-up appointment to hopefully get a plan to avoid having this happen to you in the future. Come back to the emergency department for any new, concerning or emergent complaints. Copy Copies To 1: JONNIE JAUREGUI MD, KATHRYN M MD Sep 29, 2021 06:43
[2021-09-29] MEDS ORDERED: ADENOSINE 6 MG/2 ML (ADENOCARD) VIAL IV ONE ×2 (06:45)
[2021-09-29] MEDS ORDERED: NS IV 1000 ML 1,000 ML IV SCH (06:45)
[2021-09-29 07:10] LABS: POTASSIUM 3.3 MMOL/L (3.6-5.0)
[2021-09-29 07:11] LABS: CALCIUM 9.6 MG/DL (8.5-10.1)
[2021-09-29 07:15] LABS: CREATININE SERUM 0.83 MG/DL (0.60-1.30)
[2021-09-29 08:03] VITALS: BP 108/72
== END 2021-09-29 08:03 | disposition home or self-care (01) ==
LOC: EDUNIT# 06:34 → ER 06:35
DX: I47.1 Supraventricular tachycardia (principal)
CPT/HCPCS: 36415; 80048; 83735; 84703; 93005